=== PATIENT | female | born 1955 | race Caucasian/White ===

== ENCOUNTER → 2021-05-20 | Outpatient (CLI) | payer MEDICARE, OTHER | LOC: COL.RAD 13:30 | DX: Z12.2 Encounter for screening for malignant neoplasm of respiratory organs (principal); Z87.891 Personal history of nicotine dependence ==

== ENCOUNTER 2022-02-10 08:34 | Day surgery (SDC) | payer MEDICARE, OTHER ==
[~2022-02-10] VITALS: Ht 162.6 cm; Wt 88.6 kg
[2022-02-10 10:43] VITALS: BP 136/81; PULSE 66; TEMP 98.2
[2022-02-10] MEDS ORDERED: WELCHOL 625MG625 MG PO (10:52)
[2022-02-10] MEDS ORDERED: PENTASA250 MG PO (10:52)
[2022-02-10] MEDS ORDERED: IMODIUM 2MG CAPS2 MG PO (10:53)
[2022-02-10] MEDS ORDERED: PRIL40 PO (10:53)
[2022-02-10] MEDS ORDERED: VITAMIN D31000 I1 PO (10:54)
[2022-02-10] MEDS ORDERED: [UNRECOGNIZED DRUG - OTHER] PO (10:55)
[2022-02-10] MEDS ORDERED: LANTUS100 U/ML SQ (10:56)
[2022-02-10] MEDS ORDERED: JARDIANCE25 PO (10:57)
[2022-02-10] MEDS ORDERED: JANUMET 1000 MG1 TA1 PO (10:57)
[2022-02-10] MEDS ORDERED: ATARAX 25MG25 MG/TAB PO (10:58)
[2022-02-10] MEDS ORDERED: BREO ELLIPTA 21 EACH IH (10:59)
[2022-02-10] MEDS ORDERED: ZYRTEC 10MG10 MG PO (10:59)
[2022-02-10] MEDS ORDERED: PROAIR DIGIHAL90 MCG IH (11:00)
[2022-02-10] MEDS ORDERED: VOLTAREN GEL 1%1 TU TP (11:00)
[2022-02-10 11:30] VITALS: BP 105/56; PULSE 72; TEMP 98.2
[2022-02-10 11:45] VITALS: BP 115/63; PULSE 67
== END 2022-02-10 12:10 | disposition home or self-care (01) ==
LOC: SDCO 08:34
DX: Z12.11 Encounter for screening for malignant neoplasm of colon (principal); K50.118 Crohn's disease of large intestine with other complication; K52.9 Noninfective gastroenteritis and colitis, unspecified; Z98.0 Intestinal bypass and anastomosis status; Z87.891 Personal history of nicotine dependence
CPT/HCPCS: J2704; J7120

== ENCOUNTER 2023-06-20 13:50 | Outpatient (CLI) | payer MEDICARE, OTHER ==
[~2023-06-20 13:50] MED LIST: ATARAX 25MG25 MG/TAB PO; BREO ELLIPTA 21 EACH IH; CALCIUM 600 MG1 EAC2 PO; ENTYVIO IV; IMODIUM 2MG CAPS2 MG PO; JANUMET 1000 MG1 TA1 PO; JARDIANCE25 PO; LANTUS100 U/ML SQ; MAGNESIUM500 MG PO; PENTASA250 MG PO; PRIL40 PO; PROAIR DIGIHAL90 MCG IH; VITAMIND3 5000 PO; VOLTAREN GEL 1%1 TU TP; WELCHOL 625MG625 MG PO; ZYRTEC 10MG10 MG PO; [UNRECOGNIZED DRUG - OTHER] PO
[2023-06-20 14:14] LABS: BASO % 0.4 % (0.0-2.0); EOS # 0.1 K/mm3 (0.0-0.7); EOS % 2.2 % (0.0-4.0); GRAN # 2.6 K/mm3 (1.4-6.5); GRAN % 47.4 % (42.2-75.2); HEMATOCRIT 43.7 % (37.0-47.0); HEMOGLOBIN 14.5 g/dl (12.5-16.0); LYMPH # 2.4 K/mm3 (1.2-3.4); LYMPH % 42.4 % (20.0-51.0); MEAN CELL VOLUME 90 fl (80.0-100.0); MEAN CORPUSCULAR HEMOGLOBIN 30 pg (27-31); MEAN CORPUSCULAR HGB CONC 33 g/dl (33.0-37.0); MONO # 0.4 K/mm3 (0.1-0.6); MONO % 7.4 % (1.7-9.3); PLATELET COUNT 102 K/mm3 (130-400); RED BLOOD COUNT 4.85 M/mm3 (4.10-5.30); REDCELL DISTRIBUTION WIDTH-CV 14.3 % (11.5-14.5)
[2023-06-20 14:40] VITALS: BP 115/76; PULSE 91; TEMP 97.9
[2023-06-20 14:47] LABS: ALBUMIN 3.7 gm/dL (3.4-4.8); BILIRUBIN,TOTAL 1.1 mg/dL (0.2-1.2); CALCIUM 9.2 mg/dL (8.4-10.2); CREATININE, serum 0.84 mg/dL (0.57-1.11); POTASSIUM 3.4 mmol/L (3.5-4.5); TOTAL PROTEIN 7.4 gm/dL (6.2-8.1)
--- NOTE | 2023-06-20 15:30 | NUR ---
Pt tolerated infusion without issue. IV DC'd, site wrapped with coban. She exits dept with steady gait.
== END 2023-06-20 15:30 | disposition home or self-care (01) ==
LOC: EUO 13:50
PROVIDERS: Internal Medicine Gastroenterology
DX: K50.90 Crohn's disease, unspecified, without complications (principal)
CPT/HCPCS: J1200; J2930; J3380; J7050